=== PATIENT | female | born 1930 | race Caucasian/White ===

== ENCOUNTER → 2017-07-22 | Outpatient (CLI) | payer MEDICARE, OTHER ==
[~2017-07-22] MED LIST: ACETAMINOPHEN325 M1 PO; CEFTIN500 MG PO; CITRACAL PO; COUMADIN 3 MG TA3 MG; IRON325 PO; NORCO 10-325 T1 EACH PO; OMEGA-31000 MG PO; OXYCODONE HCL 55 MG PO; OXYIR5 MG; VITAMIN D1000 UNI1 PO; WELCHOL 625 MG625 MG PO; WELCHOL PO
== END ==
LOC: M.CT 07:29
DX: I25.10 Atherosclerotic heart disease of native coronary artery without angina pectoris (principal); R91.8 Other nonspecific abnormal finding of lung field; I70.0 Atherosclerosis of aorta; N28.1 Cyst of kidney, acquired; R63.4 Abnormal weight loss; Z96.641 Presence of right artificial hip joint

== ENCOUNTER → 2018-02-21 | Outpatient (CLI) | payer MEDICARE, OTHER | LOC: M.MRI 06:59 | DX: I67.82 Cerebral ischemia (principal); H54.61 Unqualified visual loss, right eye, normal vision left eye; E78.5 Hyperlipidemia, unspecified ==

== ENCOUNTER → 2018-04-20 | Outpatient (CLI) | payer MEDICARE, OTHER | LOC: M.RAD 09:23 | DX: Z12.31 Encounter for screening mammogram for malignant neoplasm of breast (principal) ==

== ENCOUNTER → 2019-06-13 | Outpatient (CLI) | payer MEDICARE, OTHER | LOC: M.RAD 11:45 | DX: M54.12 Radiculopathy, cervical region (principal); M79.18 Myalgia, other site; Z79.899 Other long term (current) drug therapy ==

== ENCOUNTER → 2019-06-16 | Outpatient (CLI) | payer MEDICARE, OTHER | LOC: M.MRI 11:03 | DX: M47.812 Spondylosis without myelopathy or radiculopathy, cervical region (principal); M50.21 Other cervical disc displacement, high cervical region; M48.02 Spinal stenosis, cervical region; M25.78 Osteophyte, vertebrae ==

== ENCOUNTER → 2019-06-28 | Outpatient (CLI) | payer MEDICARE, OTHER ==
[~2019-06-28] MED LIST changes: +ALEVE220 M1 PO; +eye vitamins
== END ==
LOC: M.PC 05:05
DX: G50.0 Trigeminal neuralgia (principal)

== ENCOUNTER → 2019-12-25 | Outpatient (CLI) | payer MEDICARE, OTHER | LOC: M.RAD 12:38 → M.ULTRA 12:38 | DX: Z12.31 Encounter for screening mammogram for malignant neoplasm of breast (principal); R29.898 Other symptoms and signs involving the musculoskeletal system; I70.0 Atherosclerosis of aorta ==

== ENCOUNTER → 2019-12-27 | Outpatient (CLI) | payer MEDICARE, OTHER | LOC: M.MRI 10:36 | DX: M51.27 Other intervertebral disc displacement, lumbosacral region (principal); M47.817 Spondylosis without myelopathy or radiculopathy, lumbosacral region; G25.9 Extrapyramidal and movement disorder, unspecified; M41.86 Other forms of scoliosis, lumbar region; M51.37 Other intervertebral disc degeneration, lumbosacral region; M48.061 Spinal stenosis, lumbar region without neurogenic claudication; M25.78 Osteophyte, vertebrae; M48.07 Spinal stenosis, lumbosacral region ==

== ENCOUNTER → 2021-03-05 | Outpatient (CLI) | payer MEDICARE, OTHER | LOC: M.ULTRA 09:30 | DX: R31.9 Hematuria, unspecified (principal); R80.9 Proteinuria, unspecified ==

== ENCOUNTER → 2021-03-26 | Outpatient (CLI) | payer MEDICARE, OTHER | LOC: M.CT 10:36 | DX: Z12.31 Encounter for screening mammogram for malignant neoplasm of breast (principal); R59.1 Generalized enlarged lymph nodes ==

== ENCOUNTER → 2021-03-31 | Outpatient (CLI) | payer MEDICARE, OTHER ==
[2021-03-31 12:35] LABS: CREATININE 0.9 mg/dL (0.6-1.3)
== END ==
LOC: M.LAB 03-27 15:32
DX: K44.9 Diaphragmatic hernia without obstruction or gangrene (principal); R59.9 Enlarged lymph nodes, unspecified; I25.10 Atherosclerotic heart disease of native coronary artery without angina pectoris; J98.11 Atelectasis

== ENCOUNTER → 2021-04-04 | Outpatient (CLI) | payer MEDICARE, OTHER ==
--- NOTE | 2021-04-08 17:07 | PATH ---
[address] [address] PATHOLOGY RPT PROCEDURE Name: ECTORJENNIFERANN MCCLAIN Room: [facility]#: [id number] Admission: 04/04/21 Date of : 34 Discharge: Report #: [id number] Path Case #: [id number] [facility] Accession Number: [id number] . 01 Material submitted: . lymph node - LEFT CERVICAL LYMPH NODE BIOPSY. Modifiers: left, Y . 01 Clinical history: . CERVICAL ADENOPATHY RENAL MASS LYMPH NODE 2.6 X 1.8 X 1.3CM US/LYMPH NODE BIOPSY/ SUPRACLAVICULAR LYMPHADENOPAT... . 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 SEE COMMENT. . . . . . Special studies report received from [facility], [address] [place] [address], [address], [place], [address], on case [id number], labeled with their number [id number], dated 04/07/2021. . Flow Cytometry: Hematologic Neoplasia Assessment . Clinical History Cervical adenopathy renal mass . Indication For Study Evaluation for hematolymphoid neoplasia . Specimen Lymph Node, Left Cervical . Viability 44% (7AAD exclusion) . Interpretation Lymph Node, Left Cervical: Findings compatible with a non-hematolymphoid process . Comments Correlation with available clinical, laboratory, and morphologic data is recommended. . [place] [address] PATHOLOGY RPT PROCEDURE Name: JENNIFER MAYNARD [id number] Admission: 04/04/21 Date of : 34 Discharge: Report #: [id number] Path Case #: [id number] Abnormal Cells: 34% CD45-, CD56-, CD57-, no significant reactivity with the other markers tested Lymphocytes: 1% B-cells: 0.06%, polytypic/polyclonal sIg light chain pattern T-cells: no significant abnormalities of the markers tested CD4:CD8: 0.8 NK cells: 0.1% Granulocytes: 2% Present Monocytes/ 1% Present Histiocytes: Remaining CD45 62% No significant reactivity with markers tested Negative Events/ (may represent degenerated non-hematolymphoid Debris: cells, other degenerated cells, debris, unlysed red blood cells, etc.) . Morphologic Evaluation A slide was reviewed for quality assurance analyst purposes only. . Specimen Description Cell Yield: 1.05 x 10 and 6 . Reagent(s) Used CD2, CD3, CD4, CD5, CD7, CD8, CD10, CD11b, CD19, CD20, CD23, CD30, CD38, CD43, CD45, CD56, CD57, FMC-7, HLA-DR, kappa, lambda . at [facility]. Byron Bradford MD Pathologist . Intended Use Flow cytometry is optimally used to immunophenotypically characterize abnormal populations when they are detected. Negative flow cytometry results do not exclude lymphoma or neoplasia. Possible false negative flow cytometry results may occur in, but are not limited to, the following: neoplastic cells in Hodgkin lymphoma are not typically adequately represented by routine clinical flow cytometry; neoplastic cells may be lost or inadequately represented due to degeneration, sample processing, sampling artifact, or patchy involvement; plasma cells are typically underrepresented by flow cytometry; immature cells/blasts may be underrepresented due to hemodilution; myeloproliferative disorders and low grade myelodysplasia may not have immunophenotypic abnormalities or increased blasts. Correlation with all available clinical, laboratory, and morphologic data is always necessary to assess for the possibility of false negative flow cytometry results and to establish a diagnosis. Each marker in this analysis was used to assess for potential antigenic abnormalities or to evaluate detected abnormalities[place] [address] PATHOLOGY RPT PROCEDURE Name: JENNIFER MAYNARD Room: [facility]#: [id number] Admission: 04/04/21 Date of : 34 Discharge: Report #: [id number] Path Case #: [id number] Any image or images that accompany this report are product sales representative images only and should not be used to render a diagnosis. . Disclaimer(s) This test was developed and its performance characteristics determined by [employer]. It has not been cleared or approved by the Food and Drug Administration. . Performing Labs [facility] is a business unit of [employer] a wholly-owned subsidiary of [employer]. . This test was performed at [facility]. at [address], [place], [address] - Internal Grinder: Jorden Perry MD. . For inquiries, the physician may contact Lab: [phone] . A complete copy of the report is on file. . Professional services performed by [facility]. at [address], [place] [address]. Technical services performed by [facility]. at [address], [place] [address]. . (ALOK:bharathi 04/08/2021) . LBQ 04/08/2021 1608 Local . 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 A panel of properly controlled immunohistochemical studies performed on A1 shows the neoplastic cells to have the following characteristics supporting a urothelial primary: . CK7: Positive CK20: Patchy positive PAX8: Negative High molecular weight keratin: Positive VIRI-3: Positive Estrogen receptor: Negative . Reviewed with Dr. August Feldman on 04/08/2021 who agrees with the diagnosis. Dr. Rodrigues notified at approximately 1100 on 04/08/2021. (ALOK/db; 04/08/2021) . 02 [place] [address] PATHOLOGY RPT PROCEDURE Name: JENNIFER MAYNARD JOHNY Room: [facility]#: [id number] Admission: 04/04/21 Date of : 34 Discharge: Report #: [id number] Path Case #: [id number] Electronically signed: . Garrett Barber MD, Pathologist NPI- [id number] . 01 Gross description: . The specimen is received in formalin, labeled "Jennifer Maynard, lymph node biopsy" and consists of 3 cheatham-white cylindrical needle core biopsies ranging in length from 0.3 cm to 1.2 cm and each averaging 0.1 cm in diameter. The specimen is submitted in toto in A1-A3. Also received with this case is an RPMI containing minute red-cheatham tissue fragments aggregating < 0.1 x < 0.1 x < 0.1 cm. The RPMI is given to sendouts on 04/04/2021 for further testing. (CROW; 04/04/2021) DKA/DKA 04/04/[address] [place] [address] . 02 Pathologist provided ICD-10: C77.0 . 02 CPT . 524986, A12852, [id number] Specimen Comment: A courtesy copy of this report has been sent to [phone] Specimen Comment: Report sent to Performed at: 01 [facility] [address], [place] [id number] MD Benjamin Rodas MD Phone: [phone] Performed at: [address] [place], [place] [id number] MD Garrett Barber MD Phone: [phone]
== END | disposition home or self-care (01) ==
LOC: M.ULTRA 07:54
DX: R59.0 Localized enlarged lymph nodes (principal); C77.0 Secondary and unspecified malignant neoplasm of lymph nodes of head, face and neck; N28.89 Other specified disorders of kidney and ureter